=== PATIENT | male | born 1980 | race Caucasian/White ===

== ENCOUNTER → 2020-02-29 15:26 | Outpatient (CLI) | payer BC, SELFPAY ==
--- NOTE | ~2020-02-29 | XR_ITS ---
XR_CERV2-3V_CR DATE: 02/29/2020 15:37 INDICATION: Skin paresthesia TECHNIQUE: AP, open-mouth, lateral, swimmer views COMPARISON: None FINDINGS: There is normal alignment at C1 and C2. The odontoid process is intact. No fracture or dislocation or locked facet. No prevertebral soft tissue swelling. Cervical interspaces are preserved. IMPRESSION: No significant abnormality Reviewed, dictated and finalized at Location A. Reviewed, dictated and finalized at location B. IMPRESSION: No significant abnormality
== END ==
PROVIDERS: PCP Physician Assistant; Visit Provider Physician Assistant
DX: R20.2 Paresthesia of skin (principal)
CPT/HCPCS: 72040

== ENCOUNTER 2020-05-04 08:50 | Outpatient (CLI) | payer BC, SELFPAY ==
--- NOTE | 2020-05-04 11:00 | NEURO_ITS ---
Patient Number: [id number] Impression: # Complains of right hand pain and numbness. # Right moderate Carpal Tunnel Syndrome. # No ulnar neuropathy. # Normal needle/EMG exam. Nerve Conduction Studies Anti Sensory Summary Table Stim Site NR Peak (ms) P-T Amp (?V) Site1 Site2 Delta-P (ms) Dist (cm) Efren (m/s) Right Median Anti Sensory (2-3nd Digit) Wrist 4.5 7.7 Wrist 2-3nd Digit 4.5 14.0 31 Wrist 7.4 9.8 Wrist 2-3nd Digit 4.5 14.0 31 Right Radial Anti Sensory (Base 1st Digit) Wrist 2.2 27.5 Wrist Base 1st Digit 2.2 0.0 Right Ulnar Anti Sensory (5th Digit) Wrist 2.5 56.3 Wrist 5th Digit 2.5 14.0 56 Motor Summary Table Stim Site NR Onset (ms) O-P Amp (mV) Site1 Site2 Delta-0 (ms) Dist (cm) Efren (m/s) Right Median Motor (Abd Poll Brev) Wrist 5.2 1.2 Elbow Wrist 5.2 32.0 62 Elbow 10.4 1.2 Right Ulnar Motor (Abd Dig Minimi) Wrist 2.4 8.1 A Elbow Wrist 5.6 32.0 57 A Elbow 8.0 7.0 F Wave Studies NR F-Lat (ms) L-R F-Lat (ms) Right Median (Mrkrs) (Abd Poll Brev) 31.64 Right Ulnar (Mrkrs) (Abd Dig Min) 30.08 EMG Side Muscle Nerve Root Ins Act Fibs Amp Dur Recrt Comment Right 1stDorInt Ulnar C8-T1 Nml Nml Nml Nml Nml Right Ext Indicis Radial (Post Int) C7-8 Nml Nml Nml Nml Nml Right Ext Digitorum Radial (Post Int) C7-8 Nml Nml Nml Nml Nml Right BrachioRad Radial C5-6 Nml Nml Nml Nml Nml Right PronatorTeres Median C6-7 Nml Nml Nml Nml Nml Right Abd Poll Brev Median C8-T1 Nml Nml Nml Nml Nml Right ABD Dig Min Ulnar C8-T1 Nml Nml Nml Nml Nml MTDD
== END 2020-05-04 08:51 | disposition home or self-care (01) ==
PROVIDERS: PCP Physician Assistant; Visit Provider Physician Assistant
DX: G56.01 Carpal tunnel syndrome, right upper limb (principal)
CPT/HCPCS: 95886; 95909

== ENCOUNTER 2020-07-08 00:40 | Outpatient (CLI) | payer BC, SELFPAY ==
[2020-07-08 20:15] LABS: SARS-CoV-2 RNA PCR Negative
== END 2020-07-08 00:41 | disposition home or self-care (01) ==
LOC: ANHCOVIDDT 00:41
PROVIDERS: PCP Family Medicine; Visit Provider Plastic Surgery
DX: Z01.818 Encounter for other preprocedural examination (principal); Z20.828 Contact with and (suspected) exposure to other viral communicable diseases
CPT/HCPCS: 87635; C9803; U0003

== ENCOUNTER 2020-07-12 00:09 | Day surgery (SDC) | payer BC, SELFPAY ==
[2020-07-03 14:05] VITALS: BMI 33.0
--- NOTE | 2020-07-12 08:29 | WPDHPUPDATE1 ---
History and Physical Update Update Date/Time: 07/12/20 08:29 History and Physical has been reviewed, including an updated exam of the patient. There are NO changes in the patient's condition. Risks, benefits, and alternatives have been discussed and questions answered. Patient agrees to proceed with procedure.
--- NOTE | 2020-07-12 13:01 | PM.OP ---
Procedure Note - Brief Procedure Note - Brief Date of procedure: 07/12/20 Pre-op diagnosis: right carpal tunnel syndrome Post-op diagnosis: same Procedure performed: R OCTR Anesthesia: local Surgeon: Octavio Wallace MD Estimated blood loss (mL): 0 Drains: No Packing: No Pathology: none sent Complications: No immediate complications Condition: stable Disposition: same day
[2020-07-12 14:58] VITALS: BP 144/94; PULSE 93; RESP 16; TEMP 36.8; O2SAT 98
[2020-07-12 15:31] VITALS: BP 158/70; PULSE 88; RESP 16; O2SAT 96
[2020-07-12 15:40] VITALS: BP 155/68; PULSE 89; RESP 18; O2SAT 98
[2020-07-12 15:50] VITALS: BP 139/73; PULSE 74; RESP 18; O2SAT 97
[2020-07-12 16:02] VITALS: BP 135/74; PULSE 82; RESP 16; O2SAT 99
--- NOTE | 2020-07-12 16:49 | PM.PROC ---
Procedure Note - Detailed Date of procedure: 07/12/20 Pre-op diagnosis: right carpal tunnel syndrome Post-op diagnosis: same Procedure performed: Right open carpal tunnel release Description of procedure: The right palmar site was marked on the patient in the holding area. He was rolled to the operating room and placed supine on the operating table. This procedures under local anesthetic. A time-out was held and confirmed. The extremity was prepped and draped in usual fashion. The site was again marked. The site was locally infiltrated with 1% lidocaine with epinephrine. The patient found is fairly disconcerting wish proceed. Time was allowed for anesthetic and hemostatic effect. No tourniquet was used. The incision was made as marked. The dissection was carried bluntly through the subcutaneous tissue to the palmar fascia. This and the carpal ligament were incised with a 15. Blade. Additional anesthetic had to be placed at that time. The patient then tolerated the remainder the procedure well as we divided the carpal ligament completely. The ligament was thick, but there was no unusual anatomy noted. The wound was closed with interrupted 4-0 nylon. No tourniquet was used and no cautery was used there was very minimal bleeding. The usual bandage was applied. He was discharged from the operating room stable condition.He has a prescription for hydrocodone 5/325 sent to his pharmacy Surgeon: Octavio Wallace MD
== END 2020-07-12 16:30 | disposition home or self-care (01) ==
PROVIDERS: PCP Family Medicine; Visit Provider Plastic Surgery
PROC: (CPT 64721; principal; 2020-07-12 15:00)
DX: G56.01 Carpal tunnel syndrome, right upper limb (principal)
CPT/HCPCS: 64721; A9270

== ENCOUNTER → 2020-08-17 12:11 | Outpatient (CLI) | payer BC, SELFPAY ==
--- NOTE | ~2020-08-17 | US_ITS ---
EXAMINATION: US scrotum doppler EXAM DATE: 08/17/2020 12:41 INDICATION: N50.812 - Left testicular pain. TECHNIQUE: Multiple grayscale and Doppler images of the testicles and scrotum were obtained bilateral ly. There is no prior study for comparison. FINDINGS: Right testicle measures 4.0 x 2.5 x 2.9 cm and is morphologically normal. Low resistance Doppler zhou w confirmed. The epididymis is unremarkable. There is no hydrocele or varicocele. Left testicle measures 3.9 x 2.6 x 2.4 cm and is morphologically normal. Low resistance Doppler flow confirmed. The epididymis is unremarkable. There is no hydrocele or varicocele. IMPRESSION: Unremarkable testicular/scrotal ultrasound exam. Reviewed, dictated and finalized at location A. K REPAIR LABORER
== END ==
PROVIDERS: PCP Family Medicine; Visit Provider Family Medicine
DX: N50.812 Left testicular pain (principal)
CPT/HCPCS: 76870; 93976

== ENCOUNTER → 2020-12-08 04:37 | Outpatient (CLI) | payer BC, SELFPAY ==
[2020-12-08 19:37] LABS: SARS-CoV-2 RNA PCR Negative
== END ==
PROVIDERS: PCP Family Medicine; Visit Provider Physician Assistant
DX: Z20.822 Contact with and (suspected) exposure to COVID-19 (principal); R05 Cough
CPT/HCPCS: C9803; U0003; U0005

== ENCOUNTER → 2021-01-09 10:38 | Outpatient (CLI) | payer BC, SELFPAY ==
--- NOTE | ~2021-01-09 | XR_ITS ---
XR lumbar spine min 4V DATE: 01/09/2021 12:03 INDICATION: Low back pain TECHNIQUE: AP, lateral, coned lateral lumbosacral and bilateral oblique views COMPARISON: None FINDINGS: There is minimal degenerative spurring of the lumbar spine, most pronounced at the upper ma rgin of the fourth lumbar vertebral body. Lumbar and lumbosacral interspaces are relatively well pres erved. No fracture, bone destruction, spondylolysis or spondylolisthesis is detected. The sacroiliac joints are normal. IMPRESSION: Mild degenerative change Reviewed, dictated and finalized at location A. IMPRESSION: Mild degenerative change
== END ==
PROVIDERS: PCP Family Medicine; Visit Provider Physician Assistant
DX: M47.816 Spondylosis without myelopathy or radiculopathy, lumbar region (principal)
CPT/HCPCS: 72110

== ENCOUNTER → 2021-07-18 02:49 | Outpatient (CLI) | payer BC, SELFPAY ==
[2021-07-18 19:39] LABS: SARS-CoV-2 RNA PCR Positive
== END ==
PROVIDERS: PCP Family Medicine; Visit Provider Family Medicine
DX: U07.1 COVID-19 (principal); R05.9 Cough, unspecified
CPT/HCPCS: C9803; U0003; U0005

== ENCOUNTER → 2021-12-06 11:44 | Outpatient (CLI) | payer BC, SELFPAY ==
--- NOTE | ~2021-12-06 | US_ITS ---
US scrotum doppler INDICATION: Left testicular pain. TECHNIQUE: Testicular sonogram utilizing grayscale and color Doppler FINDINGS: The testes are normal in size and appearance. No focal lesions are seen. The right testes measures 4.5 x 2.4 x 3.2 cm centimeters, and the left testis measures 4.3 x 2.4 x 2.9 cm cm. There is normal vascular flow to both testes. The right and left epididymides appear normal. There are small hydroceles. No evidence for varicocele. IMPRESSION: 1. Small bilateral hydroceles. Reviewed, dictated and finalized at location A.
== END ==
PROVIDERS: PCP Family Medicine; Visit Provider Family Medicine
DX: N50.812 Left testicular pain (principal); N43.3 Hydrocele, unspecified
CPT/HCPCS: 76870; 93976

== ENCOUNTER 2023-12-05 01:35 | Day surgery (SDC) | payer BC, SELFPAY ==
[2023-11-18 15:03] VITALS: BMI 33.0
[2023-12-05 10:04] VITALS: BP 142/95; PULSE 77; RESP 16; TEMP 36; O2SAT 99
[2023-12-05 10:07] LABS: Glucose Point of Care 121 mg/dl (65-105)
[2023-12-05] MEDS: LACTATED RINGERS 1,000 ML 150 ML IV CONT (10:12)
--- NOTE | 2023-12-05 10:48 | WPDANESEPPF ---
Anes - Initial Pre Proc Eval Procedure: Operation Date: 12/05/23 11:30 Proposed Procedures p Screening Colonoscopy - Mert Almaraz MD Date/Time: 12/05/23 10:48 Surgeon: Mert Almaraz MD Pre Op Diagnosis: neoplasm screening Patient Data Age: 43 Gender: M Height: 1.78 m Weight: 99 kg Last Vital Signs Temp 96.8 F L 12/05/23 10:04 Pulse 77 12/05/23 10:04 Resp 16 12/05/23 10:04 BP 142/95 H 12/05/23 10:04 Pulse Ox 99 12/05/23 10:04 O2 Del Method Room Air 12/05/23 10:04 Allergies Allergy/AdvReac Type Severity Reaction Status Date / Time No Known Allergies Allergy Verified 12/05/23 10:03 Home Medications Medication Instructions Recorded Confirmed Type cetirizine 10 mg tablet (Zyrtec) 10 mg PO DAILY 06/14/19 12/05/23 History fluticasone propionate 50 2 spray intranasal DAILY 06/14/19 11/18/23 History mcg/actuation nasal spray,suspension nebulizers #1 ea 09/06/19 09/18/23 Rx albuterol sulfate 2.5 mg/3 mL 2.5 mg (3 mL) inhalation Q6H PRN 04/25/22 11/18/23 Rx (0.083 %) solution for nebulization bronchospasm #180 mL albuterol sulfate 90 mcg/actuation 2 puff inhalation Q4H PRN 07/19/22 11/18/23 Rx aerosol inhaler shortness of breath or wheezing #8.5 grams dextroamphetamine-amphetamine 15 15 mg PO DAILY 05/15/23 12/05/23 History mg tablet (Adderall) omeprazole 20 mg capsule,delayed 20 mg PO HS #90 caps 05/15/23 11/18/23 Rx release sertraline 50 mg tablet 100 mg PO DAILY 05/15/23 11/18/23 History atorvastatin 20 mg tablet 20 mg PO QHS #90 tabs 06/30/23 11/18/23 Rx metformin 500 mg tablet,extended 500 mg PO BID #180 tabs 11/24/23 12/05/23 Rx release 24 hr Laboratory Tests 12/05/23 10:04 POC Capillary Glucose 121 H mg/dl (65-105) Patient hx anesthesia problems: none Family hx anesthesia problems: none Results Review: All pre-operative results and documents have been reviewed as part of the pre-operative evaluation. [facility] Past Medical History Medical History ADHD Asthma JAME (obstructive sleep apnea) Surgical History Surgical History History of nasal septoplasty History of vasectomy (~04/2018) Family History Family History Mother Family history of elevated blood lipids Acute myocardial infarction, Onset Age: 58 Family history of coronary artery disease Sibling Family history of elevated blood lipids Grandparent Acute myocardial infarction Family history of coronary artery disease Social History Social History Years smoked: 4 Smoking status: Former smoker Tobacco type: cigarettes Smoking end date: 07/03/00 Alcohol intake: current Drinks per week: 4 Alcohol use details: weekends Substance use: never Substance use type: does not use Do You Feel Safe in your Home?: Yes Lack of Transportation: No Lack of Food: Never True Current Housing: I Have Housing Concerned About Future Housing: No Difficulty Paying Gas/Electric Bills: No Difficulty Paying for Meds: No Currently Unemployed: No Education: Trade/Vocational Certificate Difficulty w/ Childcare or Family Care: No Living arrangements: with family Gender identity (if verbalized by the patient): Male Spiritual care concerns: No Agree to blood products: Yes Anes - Eval Final PreProcedure Day of Procedure 12/05/23 10:48 Patient weight: obese Heart: regular rate and rhythm Lungs: clear to auscultation Airway: Mallampati scale class II Neurological: alert and oriented Last oral intake: >/= 8 hours ASA classification: III Emergent: no Anesthetic plan: proceed Anesthesia type and monitoring: general GIVS and standard monitoring Results Review: All pre-operative results and d
--- NOTE | 2023-12-05 11:41 | PM.HPGS ---
History of Present Illness History of Present Illness Consent: Risks, benefits, and alternatives have been discussed and questions answered. Patient agrees to proceed with procedure. Chief complaint: neoplasm screening Narrative: James Hansen is a 43 year old male here for first screening colonoscopy Review of Systems Review of Systems: All systems reviewed & are unremarkable except as noted in HPI and below PMFSH Past Medical History Medical History ADHD Asthma JAME (obstructive sleep apnea) Surgical History Surgical History History of nasal septoplasty History of vasectomy (~04/2018) Family History Family History Mother Family history of elevated blood lipids Acute myocardial infarction, Onset Age: 58 Family history of coronary artery disease Sibling Family history of elevated blood lipids Grandparent Acute myocardial infarction Family history of coronary artery disease Social History Social History Years smoked: 4 Smoking status: Former smoker Tobacco type: cigarettes Smoking end date: 07/03/00 Alcohol intake: current Drinks per week: 4 Alcohol use details: weekends Substance use: never Substance use type: does not use Do You Feel Safe in your Home?: Yes Lack of Transportation: No Lack of Food: Never True Current Housing: I Have Housing Concerned About Future Housing: No Difficulty Paying Gas/Electric Bills: No Difficulty Paying for Meds: No Currently Unemployed: No Education: Trade/Vocational Certificate Difficulty w/ Childcare or Family Care: No Living arrangements: with family Gender identity (if verbalized by the patient): Male Spiritual care concerns: No Agree to blood products: Yes Meds Home Medications and Allergies Home Medications Medication Instructions Recorded Confirmed Type cetirizine 10 mg tablet (Zyrtec) 10 mg PO DAILY 06/14/19 12/05/23 History fluticasone propionate 50 2 spray intranasal DAILY 06/14/19 11/18/23 History mcg/actuation nasal spray,suspension nebulizers #1 ea 09/06/19 09/18/23 Rx albuterol sulfate 2.5 mg/3 mL 2.5 mg (3 mL) inhalation Q6H PRN 04/25/22 11/18/23 Rx (0.083 %) solution for nebulization bronchospasm #180 mL albuterol sulfate 90 mcg/actuation 2 puff inhalation Q4H PRN 07/19/22 11/18/23 Rx aerosol inhaler shortness of breath or wheezing #8.5 grams dextroamphetamine-amphetamine 15 15 mg PO DAILY 05/15/23 12/05/23 History mg tablet (Adderall) omeprazole 20 mg capsule,delayed 20 mg PO HS #90 caps 05/15/23 11/18/23 Rx release sertraline 50 mg tablet 100 mg PO DAILY 05/15/23 11/18/23 History atorvastatin 20 mg tablet 20 mg PO QHS #90 tabs 06/30/23 11/18/23 Rx metformin 500 mg tablet,extended 500 mg PO BID #180 tabs 11/24/23 12/05/23 Rx release 24 hr Allergies Allergy/AdvReac Type Severity Reaction Status Date / Time No Known Allergies Allergy Verified 12/05/23 10:03 Vital Signs Vital Signs - 24 hr 12/05/23 10:04 Temperature 96.8 F L Pulse Rate 77 Respiratory Rate 16 Blood Pressure 142/95 H Pulse Oximetry 99 Oxygen Delivery Room Air Exam Const: General: comfortable and no acute distress HENMT: Face/Nose/Sinus: Normal nares present Eyes: General: appearance normal, both eyes and all related structures Neck: Neck: no JVD Resp: Auscultation: clear to auscultation bilaterally Cardio: Rate: regular rate Rhythm: regular rhythm GI: Inspection: non-distended GI Palp: Yes Soft to palpation Skin: General skin exam: normal color Neuro: General: gait normal Speech: normal speech Extrem: General: normal to inspection Psych: Mental Status: mental status grossly normal Assessment and Plan Assessment and plan (1) Colon canc
[2023-12-05 12:06] VITALS: BP 110/77; PULSE 67; RESP 16; O2SAT 96
[2023-12-05 12:16] VITALS: BP 113/76; PULSE 66; RESP 18; O2SAT 97
[2023-12-05 12:26] VITALS: BP 138/87; PULSE 65; RESP 20; O2SAT 98
== END 2023-12-05 12:29 | disposition home or self-care (01) ==
PROVIDERS: PCP Family Medicine; Referring Provider Nurse Practitioner; Visit Provider Internal Medicine Gastroenterology
PROC: 0DJD8ZZ Inspection of Lower Intestinal Tract, Via Natural or Artificial Opening Endoscopic (ICD-10-PCS; CPT 45378; principal; 2023-12-05 11:30)
DX: Z12.11 Encounter for screening for malignant neoplasm of colon (principal); D12.4 Benign neoplasm of descending colon; D12.5 Benign neoplasm of sigmoid colon; K64.8 Other hemorrhoids; F90.9 Attention-deficit hyperactivity disorder, unspecified type; J45.909 Unspecified asthma, uncomplicated; G47.33 Obstructive sleep apnea (adult) (pediatric); Z79.51 Long term (current) use of inhaled steroids; Z79.84 Long term (current) use of oral hypoglycemic drugs; Z87.891 Personal history of nicotine dependence; E66.9 Obesity, unspecified; Z68.31 Body mass index [BMI] 31.0-31.9, adult
CPT/HCPCS: 45385; 82948; 88305; J2704; J7120

== ENCOUNTER 2024-08-18 14:00 | Outpatient (CLI) | payer BC, SELFPAY ==
--- NOTE | ~2024-08-18 | XR_ITS ---
EXAMINATION: XR thoracolumbar DATE: 08/18/2024 14:13 INDICATION: Dorsalgia TECHNIQUE: AP and lateral views of the thoracolumbar spine were obtained. COMPARISON: Lumbar spine radiographs dated 01/09/2021 FINDINGS: 8 degree upper lumbar dextrocurvature. Sagittal alignment is normal. Vertebral body and disc heights are normal. There are small endplate osteophytes at a few levels in the lumbar spine. Visualized port ion of the lower lungs are clear with no pleural effusion. Heart size is normal.. IMPRESSION: 1. 8 degrees upper lumbar dextrocurvature. Reviewed, dictated and finalized at location A. GHT FLOW SALES LEADER
== END 2024-08-18 14:01 | disposition home or self-care (01) ==
LOC: GOSHIMG 14:01
PROVIDERS: PCP Family Medicine; Visit Provider Nurse Practitioner
DX: M54.9 Dorsalgia, unspecified (principal)
CPT/HCPCS: 72080

== ENCOUNTER 2024-11-15 14:35 | Outpatient (CLI) | payer BC, SELFPAY ==
--- NOTE | ~2024-11-15 | XR_ITS ---
CHEST RADIOGRAPH, PA AND LATERAL CLINICAL HISTORY: R05.9 - Cough, unspecified . COMPARISON: None available TECHNIQUE: PA and lateral views of the chest. FINDINGS The cardiomediastinal silhouette is unremarkable. The lungs are clear. Visualized osseous structures and soft tissues are unremarkable. IMPRESSION: No focal infiltrate or effusion. Reviewed, dictated and finalized at location A.
== END 2024-11-15 14:36 | disposition home or self-care (01) ==
LOC: GOSHIMG 14:36
PROVIDERS: PCP Nurse Practitioner; Visit Provider Family Medicine
DX: R05.9 Cough, unspecified (principal)
CPT/HCPCS: 71046

== ENCOUNTER 2025-07-06 09:54 | Outpatient (CLI) | payer BC, SELFPAY ==
--- NOTE | 2025-07-06 10:00 | NEURO_ITS ---
Impression: # Non-diabetic complains of left hand numbness. # Left Carpal Tunnel Syndrome. # No Ulnar Neuropathy. # Normal Needle/ EMG exam. Nerve Conduction Studies ?Stim Site NR Peak (ms) P-T Amp (?V) Site1 Site2 Delta-P (ms) Dist (cm) Efren (m/s) Left Median Anti Sensory (2-3nd Digit) Wrist ? 3.5 18.0 Wrist 2-3nd Digit 3.5 14.0 40 Wrist ? 3.9 44.5 Wrist 2-3nd Digit 3.5 14.0 40 Left Radial Anti Sensory (Base 1st Digit) Wrist ? 2.0 14.8 Wrist Base 1st Digit 2.0 0.0 Left Ulnar Anti Sensory (5th Digit) Wrist ? 2.4 29.9 Wrist 5th Digit 2.4 14.0 58 ?Stim Site NR Onset (ms) O-P Amp (mV) Site1 Site2 Delta-0 (ms) Dist (cm) Efren (m/s) Left Median Motor (Abd Poll Brev) Wrist ? 4.2 3.2 Elbow Wrist 5.3 32.0 60 Elbow ? 9.5 3.8 Left Ulnar Motor (Abd Dig Minimi) Wrist ? 2.7 7.9 A Elbow Wrist 5.3 32.0 60 A Elbow ? 8.0 7.6 B Elbow Wrist 3.9 23.0 59 B Elbow ? 6.6 7.9 F Wave Studies ?NR F-Lat (ms) L-R F-Lat (ms) Left Median (Mrkrs) (Abd Poll Brev) ? 29.45 Left Ulnar (Mrkrs) (Abd Dig Min) ? 28.56 Electromyography ?Side Muscle Nerve Root Ins Act Fibs Amp Dur Recrt Comment Left 1stDorInt Ulnar C8-T1 Nml Nml Nml Nml Nml Left Ext Indicis Radial (Post Int) C7-8 Nml Nml Nml Nml Nml Left Ext Digitorum Radial (Post Int) C7-8 Nml Nml Nml Nml Nml Left BrachioRad Radial C5-6 Nml Nml Nml Nml Nml Left PronatorTeres Median C6-7 Nml Nml Nml Nml Nml Left Abd Poll Brev Median C8-T1 Nml Nml Nml Nml Nml Left ABD Dig Min Ulnar C8-T1 Nml Nml Nml Nml Nml Left FlexPolLong Median (Ant Int) C7-8 Nml Nml Nml Nml Nml Left Abd Poll Long Radial (Post Int) C7-8 Nml Nml Nml Nml Nml
== END 2025-07-06 09:55 | disposition home or self-care (01) ==
LOC: ANHNEURO 09:58
PROVIDERS: PCP Family Medicine; Visit Provider Plastic Surgery
DX: G56.02 Carpal tunnel syndrome, left upper limb (principal); G56.22 Lesion of ulnar nerve, left upper limb
CPT/HCPCS: 95886; 95909

== ENCOUNTER 2025-07-13 03:51 | Day surgery (SDC) | payer BC, SELFPAY ==
[2025-07-12 11:16] VITALS: BMI 29.7
--- NOTE | 2025-07-12 11:25 | PC.NURSE ---
[facility] has started construction of its new state of the art ER which will open Spring 2026. With this, we anticipate parking may be a challenge for some our surgical patients and families. Parking spaces are limited but are available for all Surgical, obstetrics, and ER patients sharing this lot. If you arrive and find you are having a hard time finding a parking space, please note that we understand the challenges, please drive around the hospital and park near Hospital Entrance 1. When you enter this entrance, you can ask a volunteer to direct or take you back to the surgical waiting area to check in. We appreciate everyone?s understanding of these expected challenges while we build for your future. Report to the Outpatient Waiting Room, entrance under the green pavilion located off [address], at time __1:30pm on date __07/13/25 . Planned Procedure Time: ___3:30pm .? Time changes happen often and if your time is changed the preop area will call you the afternoon before. - You and your visitor will be asked to self-screen and do not enter if you have any COVID symptoms. Please call surgeon if you need to reschedule. - A mask is optional within the hospital at this time. Patients may have NO FOOD after midnight, Pt can have clear liquids (water, carbonated beverages, clear teas, apple juice) until 8 hours prior to surgery (0700am), Then just sip of water with any meds if needed until Surgery time. - No smoking, or chewing tobacco (or any form of nicotine). No chewing gum, candy or mints. Take only the following medications with a SIP of water on the morning of surgery: Inhalers DO NOT STOP ANY OF YOUR OTHER PRESCRIPTION MEDICATIONS PRIOR TO SURGERY EXCEPT THE FOLLOWING Hold all vitamins and supplements for 3 days per anesthesiologist. Medications to discontinue per physician NONE Date to take last dose NONE Please no make-up, nail new zealander, hairspray, perfume, deodorant, or body powder the day of surgery.? No jewelry (including any body piercings) or valuables the day of surgery, leave them at home.? Please take a shower or bath the night before, or the morning of, surgery with an antibacterial soap.? Wear comfortable, loose fitting clothing. - Jewelry must be removed prior to entering the operating room.? Rings and piercings that are not removed may be cut off. - The hospital will not accept responsibility for valuables.? - Please leave all valuables, including medications, at home the day of surgery. If you are going home after surgery, a licensed driver utility worker must drive you home.? - NO public transportation without another adult if you receive anesthesia. - We recommend that an adult stay with you for 24 hours following discharge. - We also recommend that you do not drive, make important decision, drink alcoholic beverages, or take any drugs that were not prescribed by your health care provider for at least 24 hours after your discharge time. Follow any additional instructions given to you from your surgeon. Telephone instructions given to _Patient and asked if any additional questions and then verbalized understanding. Patient advised to call surgeon office or pre surgery nurse liaison [phone] if any additional questions.
--- OUTSIDE RECORDS SUMMARY | 2025-07-13 03:53 | XMS_ITS | Clinical Summary ---
Author Organization [facility] lin Address [address] [place] [address] Care Team Providers Care Yard Warehouse Worker Name Role Phone No, Pcp SUPPORT ENGINEER Primary Care Provider Unavailabl e Social History Tobacco Use Types Packs/Day Years Used Date Smoking Tobacco: Never Assessed Sex and Gender Information Value Date Recorded Sex Assigned at Not on file Legal Sex Male 3:43 PM EDT Gender Identity Not on file Sexual Orientation Not on file Plan of Treatment Not on file Medical Devices Not on file Insurance [facility] Care Teams Yard Warehouse Worker Relationship Specialty Start Date End Date No, Pcp, SUPPORT ENGINEER N/A Do not use PCP - General Family Medicine 12/07/20
--- OUTSIDE RECORDS SUMMARY | 2025-07-13 03:53 | XMS_ITS | Clinical Summary ---
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 Gender Identity Not on file Sexual Orientation Not on file Plan of Treatment Health Maintenance Due Date Last Done Comments Colorectal Cancer Screening Colonoscopy (10 Years) 1978 Annual Physical 1981 Hepatitis C 1996 DTaP, Tdap and Td Vaccines ( 1 - Tdap) 1997 Hepatitis B Vaccines (1 of 3 - 19+ 3-dose series) 1997 COVID-19 Vaccine ( - 2024-2 6 season) 2025 Influenza Adult (#1) 2025 Hepatitis A Vaccines Aged Out No long er eligible based on patient's age to complete this topic Meningococcal B Vaccine Aged Out No l onger eligible based on patient's age to complete this topic Meningococcal Vaccine Aged Out No heydi ciera eligible based on patient's age to complete this topic Pneumococcal Vaccine: Pediat rics (0 to 5 Years) and At-Risk Patients (6 to 49 Years) Aged Out No longer eligible b ased on patient's age to complete this topic RSV Immunizations Under 20 Months Aged Out No longer eligible based on patient's age to complete this topic
--- OUTSIDE RECORDS SUMMARY | 2025-07-13 03:53 | XMS_ITS | Patient Health Record ---
Author Organization [facility] Address [address] [facility] [address] [place] [address] Care Team Providers Care Industrial Automation Specialist Name Role Phone Chaparro Berg Unavailable [phone] Allergies No Known Allergies Results Component Value Reference Range Notes UDT Reviewed date:02/01/2025 05:13:28 PM Interpretation: Performing Lab: Notes/Report: Amphetamine (AMP) N 0 - 1000 ng/ml Buprenorphine (BUP) N 0 - 10 ng/ml Oxazepam (BZO) N 0 - 300 ng/ml Cocaine (MODESTO) N 0 - 300 ng/ml Methamphetamine (mAMP) N 0 - 300 ng/ml Methylenedioxymethamphetamine (MDMA) N 0 - 500 ng/ml Morphine (MOP) N 0 - 25 ng/ml Methadone (MTD) N 0 - 300 ng/ml Oxycodone (OXY) N 0 - 300 ng/ml THC N 0 - 50 ng/ml x N 0 - 1000 ng/ml x N 0 - 1000 ng/ml x N 0 - 300 ng/ml x N 0 - 300 ng/ml x N 0 - 300 ng/ml UDT Reviewed date:10/06/2024 04:59:39 PM Interpretation: Performing Lab: Notes/Report: Amphetamine (AMP) POS 0 - 1000 ng/ml Buprenorphine (BUP) NEG 0 - 10 ng/ml Oxazepam (BZO) NEG 0 - 300 ng/ml Cocaine (MODESTO) NEG 0 - 300 ng/ml Methamphetamine (mAMP) NEG 0 - 300 ng/ml Methylenedioxymethamphetamine (MDMA) NEG 0 - 500 ng/ml Morphine (MOP) NEG 0 - 25 ng/ml Methadone (MTD) NEG 0 - 300 ng/ml Oxycodone (OXY) NEG 0 - 300 ng/ml THC NEG 0 - 50 ng/ml x NEG 0 - 1000 ng/ml x NEG 0 - 1000 ng/ml x NEG 0 - 300 ng/ml x NEG 0 - 300 ng/ml x NEG 0 - 300 ng/ml Reason For Referral No Information Medications Medication SIG (Take, Route, Frequency, Duration) Notes Start Date End Date Status Amphetamine-Dextroamp het ER 15 MG Capsule Extended Release 24 Hour 1 capsule in the morning Orally Once a day; Duration: 30 days 06/29/2025 Active Losartan Potassium 25 MG Tablet TAKE 1 TABLET BY MOUTH EVERY DAY Oral; Duration: 90 Days Active traZODone HCl 50 MG Tablet take 0.5 to 1 tablet at bedtime Orally Once a day; Duration: 90 days As needed 06/29/2025 Active metFORMIN HCl ER 500 MG Tablet Extended Release 24 Hour Oral 12/09/2023 Active Atorvastatin Calcium 20 MG Tablet Oral 12/09/2023 Active Omeprazole 20 MG Capsule Delayed Release Oral 12/09/2023 Active Sertraline HCl 100 MG Tablet 1.5 tablet Oral Once a day; Duration: 90 days 06/29/2025 Active ZyrTEC *Reorder from [employer] for eRx and Interaction Alerts* 12/09/2023 Active ALBUTEROL 90 MCG-BUDESONIDE 80 MCG/ACTUATION HFA AEROSOL INHALER *Reorder from [employer] for eRx and Interaction Alerts* 12/09/2023 Active Social History Tobacco Use: Social History Observation Description Date Details (start date - stop date) Never Smoker NA - NA Sex Assigned At : Social History Observation Description Sex Assigned At Male Social History Miscellaneous: Social Info Question Answer Notes Advance Care Planning Are you your own decision-maker Yes Do you have Power of Posting Specialist for Health or Medi zachary? Yes Do you have a power of workers compensation attorney for health? Yes Do you have power of workers compensation attorney for Medical ? Yes Drug/Alcohol: Social Info Question Answer Notes AUDIT-C (Standard) Did you have a drink containing alcohol in the past year? Yes How often did you have six or more drinks on one occasion in the past year? 2 to 4 times a month (2 points) How many drinks did you have on a typical day when you were drinking in the past year? 5 or 6 drinks (2 points) Tobacco Use: Social Info Question Answer Notes Tobacco Control (Standard) Tobacco use: Nonsmoker How long has it been since you last smoked? Greater than 10 years Additional Details Category Social Info Options Details Migrated Social History Migrated Social History Alcohol Intake: Occasional 12/25/2022,Tobacco Years: Former smoker 12/25/2022 Problems Problem Type SNOMED Code ICD Code Onset Dates Problem Status W/U Status Risk Notes Problem Generalized anxiety disorder (49805718) Generalized anxiety disorder (F41.1) 12/09/19 24 Active confirmed Problem Insomnia disorder related to another mental disorder (89109554) Insomnia due to other mental disorder (F51.05) 12/09/19 24 Active confirmed Problem Attention deficit hyperactivity disorder, combined type (31536526) Attention-deficit hyperactivity disorder, combined type (F90.2) 12/09/19 24 Active confirmed Vital Signs Heart Rate 83 /min 06/29/2025 Height-cm 177.8 cm 06/29/2025 Blood pressure diastolic 88 mm Hg 06/29/2025 Weight-kg 98.88 kg 06/29/2025 Height 70.00 in 06/29/2025 Blood pressure systolic 133 mm Hg 06/29/2025 Weight 218 lbs 06/29/2025 BMI 31.28 kg/m2 06/29/2025 Encounters Encounter Location Date Provider Diagnosis [facility] [facility] [place] [address] 10/05/2024 Chaparro Greera Encounter for screen ing for depression Z13.31 ; Encounter for screening for cardiovascular disorders Z13.6 ; Dietary counseling and surveillance Z71.3 ; Insomnia due to other mental disorder F51.05 ; Generalized anxiety disorder F41.1 and Attention-deficit hyperactivity disorder, combined type F90.2 [employer] [address] [place] [address] 02/01/2025 Chaparro Berg Insomnia due to othe r mental disorder F51.05 ; Generalized anxiety disorder F41.1 and Attention-deficit hyperactivity disorder, combined type F90.2 [facility] [employer] [facility] [address] [place] [address] 05/30/2025 Chaparro Berg Insomnia due to othe r mental disorder F51.05 ; Generalized anxiety disorder F41.1 and Attention-deficit hyperactivity disorder, combined type F90.2 [facility], [facility] [address] [place] [address] 06/29/2025 Chaparro Berg Insomnia due to othe r mental disorder F51.05 ; Generalized anxiety disorder F41.1 and Attention-deficit hyperactivity disorder, combined type F90.2 [facility], [facility] [address] [place] [address] 08/20/2024 Chaparro Berg Attention-deficit hyperactivity disorder, combined type F90.2 [facility], [facility] [address] [place] [address] 08/20/2024 Chaparro Berg [facility], [facility] [address] [place] [address] 09/23/2024 Chapraro Berg Attention-deficit hyperactivity disorder, combined type F90.2 and Insomnia due to other mental disorder F51.05 [facility] [address] [place] [address] 10/26/2024 Chaparro Berg Attention-deficit hyperactivity disorder, combined type F90.2 [facility] [address] [place] [address] 11/30/2024 Chaparro Berg Attention-deficit hyperactivity disorder, combined type F90.2 [facility], [facility] [address] [place] [address] 12/28/2024 Chaparro Berg Attention-deficit hyperactivity disorder, combined type F90.2 [facility], [facility] [address] [place] [address] 03/02/2025 Chaparro Berg Attention-deficit hyperactivity disorder, combined type F90.2 [facility], [facility] [address] [place] [address] 03/31/2025 Chaparro Berg Attention-deficit hyperactivity disorder, combined type F90.2 [facility], [facility] [address] [place] [address] 03/31/2025 Chaparro Berg [facility], [facility] [address] [place] [address] 05/03/2025 Chaparro Berg Attention-deficit hyperactivity disorder, combined type F90.2 Assessments Encounter Date Diagnosis (ICD Code) Assessment Notes Treatment Notes Treatment Clinical Notes Section Notes 10/05/2024 Encounter for screening for depression (ICD-10 - Z13.31) 09/23/2024 Attention-deficit hyperactivity disorder, combined type (ICD-10 - F90.2) 08/20/2024 Attention-deficit hyperactivity disorder, combined type (ICD-10 - F90.2) 06/29/2025 Insomnia due to other mental disorder (ICD-10 - F51.05) 05/30/2025 Insomnia due to other mental disorder (ICD-10 - F51.05) 05/03/2025 Attention-deficit hyperactivity disorder, combined type (ICD-10 - F90.2) 03/31/2025 Attention-deficit hyperactivity disorder, combined type (ICD-10 - F90.2) 03/02/2025 Attention-deficit hyperactivity disorder, combined type (ICD-10 - F90.2) 12/28/2024 Attention-deficit hyperactivity disorder, combined type (ICD-10 - F90.2) 11/30/2024 Attention-deficit hyperactivity disorder, combined type (ICD-10 - F90.2) 10/26/2024 Attention-deficit hyperactivity disorder, combined type (ICD-10 - F90.2) 02/01/2025 Insomnia due to other mental disorder (ICD-10 - F51.05) 02/01/2025 Generalized anxiety disorder (ICD-10 - F41.1) cont sertraline 100mg daily 06/29/2025 Generalized anxiety disorder (ICD-10 - F41.1) 09/23/2024 Insomnia due to other mental disorder (ICD-10 - F51.05) 10/05/2024 Encounter for screening for cardiovascular disorders (ICD-10 - Z13.6) 05/30/2025 Generalized anxiety disorder (ICD-10 - F41.1) cont sertraline 100mg daily 10/05/2024 Dietary counseling and surveillance (ICD-10 - Z71.3) 05/30/2025 Attention-deficit hyperactivity disorder, combined type (ICD-10 - F90.2) 06/29/2025 Attention-deficit hyperactivity disorder, combined type (ICD-10 - F90.2) 02/01/2025 Attention-deficit hyperactivity disorder, combined type (ICD-10 - F90.2) 10/05/2024 Insomnia due to other mental disorder (ICD-10 - F51.05) 10/05/2024 Generalized anxiety disorder (ICD-10 - F41.1) cont sertraline 100mg daily 10/05/2024 Attention-deficit hyperactivity disorder, combined type (ICD-10 - F90.2) 10/05/2024 Other 1. Anxiety and Depression: - Patient reports no current anxiety or depression symptoms. - States, I think we're at a good spot right now. - Currently maintained on Sertraline 200 mg daily with good effect and no reported side effects. - Recent lifestyle changes include regular exercise (3 days/week) and significant weight loss (40 lbs). - Improved energy levels and overall well-being reported. Plan: - Continue Sertraline 200 mg PO daily - Provide 90-day prescription for Sertraline 2. Attention Deficit Hyperactivity Disorder (ADHD): - Patient reports improved focus and concentration with current medication regimen. - States, I think it's gotten a lot better in reference to his ability to complete work-related tasks. - Currently maintained on Adderall XR 30 mg daily with good effect and no reported side effects. Plan: - Continue Adderall XR 30 mg PO daily - Provide multiple prescriptions for Adderall XR to be filled monthly for the next 4 months (fill dates: 10/21, 11/21, 12/21, 01/21) - Patient to message when refill is due 3. Insomnia: - Patient reports improved sleep with current medication regimen and sleep hygiene practices. - Continues to wake at 2-3 AM but attributes this to long-standing habit rather than sleep disturbance. - Patient reports going to work at 5 AM. - Currently maintained on Trazodone (dose not specified) with good effect. Plan: - Continue Trazodone (dose not specified) at bedtime - Provide 90-day prescription for Trazodone 02/01/2025 Other Anxiety Assessment: Patient reports ongoing anxiety and stress, which he describes as situational. He notes significant improvement in his stress levels following a recent job change, describing the difference as night and day. Despite this improvement, he continues to experience anxiety symptoms. Plan: - Continue Adderall XR 30 mg for ADHD - Continue Sertraline 200 mg daily for anxiety - Continue Trazodone 50 mg, half to one tablet as needed for Insomnia - Refill Adderall prescription at [facility] Sleep Disturbance Assessment: Patient reports persistent sleep issues, attributing them to a routine of early rising that he has difficulty breaking despite his job change. He is currently using Trazodone as needed for sleep. Plan: - Continue Trazodone 50 mg, half to one tablet as needed for sleep the note is transcribed using speech recognition software. It is a reflection of a visit with the patient. It might have some inaccuracy, including medication names and transcribing errors, though efforts have been made to correct them. 05/30/2025 Bayron Hansen presents with several months of worsening restlessness and leg shaking, possibly related to current Adderall dosing. Restlessness and leg shaking Patient reports several months of worsening restlessness characterized by inability to sit still and constant leg shaking throughout the day while at his desk. He has a longstanding history of leg shaking as a nervous habit, but notes this has gotten worse recently. Current medications include Adderall 30 mg and sertraline, with consideration that the combination or excessive Adderall dosing may be contributing to symptoms. Patient also consumes 3-4 cups of coffee daily, reduced from 6-7 cups previously. Symptoms persist despite no recent medication changes, and patient does not report feeling anxious or nervous. Plan: - Decrease Adderall from 30 mg to 15 mg - Continue sertraline - Follow-up in one month to assess response to Adderall reduction Trazodone use Patient currently takes trazodone and expressed willingness to discontinue this medication. Plan: - Patient may discontinue trazodone the note is transcribed using speech recognition software. It is a reflection of a visit with the patient. It might have some inaccuracy, including medication names and transcribing errors, though efforts have been made to correct them. 06/29/2025 Baryon Hansen presents for medication management with concerns about restlessness, leg shaking, and blood pressure changes following recent medication adjustments. Restlessness and leg shaking Assessment: Patient reports persistent restlessness and leg shaking that continues even when missing medications for 1-2 days. Given the persistence of symptoms despite medication breaks, the current serotonin level at 200 mg may be excessive. The combination with Adderall further increases serotonin activity, potentially contributing to these movement-related side effects. Plan: - Decrease serotonin medication to 150 mg for 2 weeks, then reduce to 100 mg - Monitor for improvement in shaking and restlessness symptoms - Consider alternative medication with less serotonergic activity if symptoms persist Blood pressure management Assessment: Blood pressure has improved following reduction from 30 mg to 15 mg of medication. Previous elevation likely related to medication or combination effects. Plan: - Continue monitoring blood pressure with current dosage reduction ADHD symptom control Assessment: ADHD symptoms remain stable despite recent medication reduction, indicating adequate symptom control at current dosing. Plan: - Continue current ADHD medication regimen given stable symptom control Allergy symptoms Assessment: Patient experienced significant worsening of allergy symptoms when attempting to discontinue hydroxyzine for a couple of days, confirming its therapeutic benefit for allergic conditions. Plan: - Continue hydroxyzine for allergy management given symptom exacerbation when discontinued the note is transcribed using speech recognition software. It is a reflection of a visit with the patient. It might have some inaccuracy, including medication names and transcribing errors, though efforts have been made to correct them. Plan Of Treatment Next Appt Details Provider Name:Bailey west, 08/24/2025 04:00:00 PM, [address] [facility] [address], [place], [address], Insurance Providers Payer Name Payer Address Payer Phone Subscriber Number Group Number Insured Name Patient Relationship to Insured Coverage Start Date Coverage End Date [facility] [address] [place] [address] [id number] VAHE HANSEN Spouse - patient is the spouse of the insured Medical (General) History Medical History History ICD Code Problems: Attention deficit hyperactivit y disorder, combined type Generalized anxiety disorder Inattention Insomnia disorder related to another men ashley disorder , Surgical History Surgery Date(Month/Year) Sinus surgery Cosmetic surgery
--- NOTE | 2025-07-13 07:09 | WPDHPUPDATE1 ---
History and Physical Update Update Date/Time: 07/13/25 07:09 Patient seen and examined in pre-operative holding area. No interval change in medical history or symptoms but patient notes he does not wish to proceed with cubital tunnel release today as previously discussed. Patient recalls previous discussion of benefits and alternatives to procedure. Continues to desire to proceed with left endoscopic possible open carpal tunnel release, and left middle and ring finger a1 ankush release. Reviewed procedure, post-op expectations and risks including but not limited to bleeding, infection, injury to tendon/nerve/vessel, decreased hand function, stiffness, RSD, no change or worsening of symptoms. I discussed the possible use of assistants and their participation in the case. Patient stated understanding and signed the consent form wishing to proceed.
--- NOTE | 2025-07-13 07:09 | W.PM.PROC2 ---
Procedure Note - Detailed Date of Procedure 07/13/25 Pre-op Diagnosis left middle and ring trigger finger, left cts Post-op Diagnosis Same Procedure Performed left ectr and MF and RF a1 ankush release Surgeon Jim Perdue MD Store Keeper chloe acuña pa-c Anesthesia MAC Description of Procedure INFORMED CONSENT: The patient was seen and examined and marked in the pre-op area.? The patient signed the consent form. PROCEDURE IN DETAIL:The patient taken back to OR on the stretcher in supine position. Time out performed with anesthesia, surgeon and staff agreeing on patient's name site and surgery to be performed SCDs were placed on the lower extremities and inflated. A tourniquet was placed on {left} upper extremity and antibiotics given IV After anesthesia administered sedation I injected {10}cc 1%lido with epi and 0.5% marcaine plain at the operative sites The?{left upper extremity}?was prepped and draped in sterile fashion the??{left upper extremity} was? exsanguinated with Esmarch bandage and tourniquet inflated to 250mmHg I made a transverse incision in the {left} volar distal wrist crease through skin and dermis with 15 blade scalpel.? Littler scissors spread down to antebrachial fascia. A small incision was made in antebrachial fascia allowing access to Carpal tunnel. I proceeded with sequential dilation staying in line with the ring finger and hugging the hook of the hamate.? I then used the synovial elevator to free any adhesions from the underside of the transverse carpal ligament. Next I was able to insert the [employer] endoscopic carpal tunnel device with direct visualization of the transverse fibers on the monitor and proceeded with complete segmental retrograde release of the ligament in its entirety.? I irrigated with normal saline and closed with 4-0 monocryl for dermis and subcuticular closure. Next I proceeded with making a longitudinal incision over the left middle finger A1 ankush through skin and dermis with a 15 blade scalpel. Littler scissors were used to spread through the subcutaneous tissue down to the A1 ankush. The A1 ankush was identified and initially incised with a 15 blade scalpel. Littler scissors were used to spread above and below it proximally and distally completing the transection entirely. Irrigated with normal saline and closed with 4-0 chromic. Next I proceeded with making a longitudinal incision over the left ring finger A1 ankush through skin and dermis with a 15 blade scalpel. Littler scissors were used to spread through the subcutaneous tissue down to the A1 ankush. The A1 ankush was identified and initially incised with a 15 blade scalpel. Littler scissors were used to spread above and below it proximally and distally completing the transection entirely. Irrigated with normal saline and closed with 4-0 chromic. The incisions were covered with Dermabond at wrist and xeroform in palm then 4x4s, nevin, and a volar wrist splint for patient safety, security and comfort and secured with moises bandages after the tourniquet was let down noting the hand was warm and well perfused.? Patient awaken from anesthesia and transferred to recovery in stable condition Complications - none EBL- 1cc Disposition - home in stable condition Chloe Acuña PA-C was essential for positioning, retraction, closure and dressing placement. [facility] [place] Billing Surgery - Charge Forward: Surgery Billing ([id number] same for chloe adding )
[2025-07-13 13:15] VITALS: BP 150/93; PULSE 64; RESP 14; TEMP 36.2; O2SAT 98
[2025-07-13] MEDS: LACTATED RINGERS 1,000 ML 30 ML IV CONT ×2 (13:40→15:03)
--- NOTE | 2025-07-13 14:00 | WPDANESEPPF ---
Anes - Initial Pre Proc Eval Procedure: Operation Date: 07/13/25 15:30 Proposed Procedures p Left Middle and Ring Trigger Finger A-1 Rashard Release, - Jim Perdue MD s Left Endoscopic Carpal Tunnel Release, Possible Open, Left Cubital Tunnel Release - Jim Perdue MD Date/Time: 07/13/25 14:00 Surgeon: Jim Perdue MD Pre Op Diagnosis: left middle and ring trigger finger, Patient Data Age: 44 Gender: M Height: 1.78 m Weight: 94 kg Allergies Allergy/AdvReac Type Severity Reaction Status Date / Time No Known Allergies Allergy Verified 07/12/25 11:11 Home Medications ?Medication ?Instructions ?Recorded ?Confirmed ?Type cetirizine 10 mg tablet (Zyrtec) 10 mg PO DAILY 06/14/19 07/13/25 History fluticasone propionate 50 2 spray intranasal DAILY 06/14/19 07/13/25 History mcg/actuation nasal spray,suspension nebulizers #1 ea 09/06/19 07/12/25 Rx albuterol sulfate 2.5 mg/3 mL 2.5 mg (3 mL) inhalation Q6H PRN 04/25/22 07/12/25 Rx (0.083 %) solution for nebulization bronchospasm #180 mL omeprazole 20 mg capsule,delayed 20 mg PO HS #90 caps 05/15/23 07/13/25 Rx release sertraline 50 mg tablet 100 mg PO DAILY 05/15/23 07/13/25 History atorvastatin 20 mg tablet 20 mg PO QHS #90 tabs 11/15/24 07/13/25 Rx nebulizer accessories #1 ea 04/01/25 07/12/25 Rx nebulizers #1 ea 04/01/25 07/12/25 Rx albuterol sulfate 90 mcg/actuation See Rx Instructions .Route 05/11/25 07/12/25 Rx aerosol inhaler .COMPLEX #8.5 ea budesonide-formoterol HFA 160 2 puff inhalation .HS #10.2 grams 07/04/25 07/13/25 Rx mcg-4.5 mcg/actuation aerosol inhaler dextroamphetamine-amphetamine ER 15 mg PO DAILY 07/04/25 07/13/25 History 15 mg 24hr capsule,extend release losartan 50 mg tablet 50 mg PO DAILY #90 tabs 07/04/25 07/13/25 Rx tirzepatide (weight loss) 5 mg/0.5 5 mg (0.5 mL) subcut WEEKLY #2 mL 07/11/25 07/13/25 Rx mL subcutaneous pen injector (Zepbound) metformin 500 mg tablet,extended 500 mg PO BID 07/12/25 07/13/25 History release 24 hr Laboratory Tests 07/13/25 13:50 POC Capillary Glucose 87 mg/dl (65-105) Patient hx anesthesia problems: none Family hx anesthesia problems: none Results Review: All pre-operative results and documents have been reviewed as part of the pre-operative evaluation. [facility] Past Medical History Medical History ADHD Asthma JAME (obstructive sleep apnea) Surgical History Surgical History History of nasal septoplasty History of vasectomy (~04/2018) Family History Family History Mother Family history of elevated blood lipids Acute myocardial infarction, Onset Age: 58 Family history of coronary artery disease Sibling Family history of elevated blood lipids Grandparent Acute myocardial infarction Family history of coronary artery disease Social History Social History Years smoked: 4 Smoking status: Former smoker Tobacco type: cigarettes Smoking end date: 07/03/00 Alcohol intake: current Drinks per week: 4 Alcohol use details: weekends Substance use: never Substance use type: does not use Lack of Transportation: No Lack of Food: Never True Current Housing: I Have Housing Concerned About Future Housing: No Difficulty Paying Gas/Electric Bills: No Difficulty Paying for Meds: No Currently Unemployed: No Education: Trade/Vocational Certificate Difficulty w/ Childcare or Family Care: No Living arrangements: with family Gender identity (if verbalized by the patient): Male Spiritual care concerns: No Agree to blood products: Yes Anes - Eval Final PreProcedure Day of Procedure 07/13/25 14:00 Patient weight: overweight Lungs: normal air movement Airway: Mallampati scale class II Neurological: alert and oriented Last oral intake: >/= 8 hours ASA classification: III Emergent: no Anesthetic plan: proceed Anesthesia type and monitoring: general GIVS and standard monitoring Results Review: All pre-operative results and documents have been reviewed as part of the pre-operative evaluation. JAME on CPAP, Asthma stable of recent, anxiety/ADHD, pre DM fsbs 87. Pt active at gym 3 x weekly, no cp or sob. Informed Consent: The patient's anesthetic plan and its attendant risks and benefits were discussed with the patient/family/POA. Questions were solicited and answers provided to the satisfaction of the patient/family/POA.
[2025-07-13] MEDS: ACETAMINOPHEN 500 MG TABLET 1000 MG PO (14:30)
[2025-07-13] MEDS: ceFAZolin 2 GM in SODIUM CHLORIDE 0.9% IV 50 ML 100 ML IVPB (14:34)
[2025-07-13] MEDS: BUPivacaine HCL 0.5% 10 ML AMP INFILTRATE (14:46)
[2025-07-13] MEDS: LIDO 1%/EPINEPHRINE 1:100,000 50 ML VIAL 10 ML INFILTRATE (14:47)
[2025-07-13] MEDS: BACITRACIN OINTMENT 15 GM TUBE 1 APPLIC TOPICAL (14:54)
[2025-07-13 15:03] VITALS: BP 108/62; PULSE 72; RESP 16; O2SAT 94
[2025-07-13 15:30] VITALS: BP 121/73; PULSE 64
[2025-07-13 16:00] VITALS: BP 125/85; PULSE 51
== END 2025-07-13 16:23 | disposition home or self-care (01) ==
PROVIDERS: PCP Family Medicine; Visit Provider Plastic Surgery
PROC: (CPT 26055; principal; 2025-07-13 15:30)
PROC: 01N54ZZ Release Median Nerve, Percutaneous Endoscopic Approach (ICD-10-PCS; CPT 29848; 2025-07-13 15:30)
DX: G56.02 Carpal tunnel syndrome, left upper limb (principal); M65.332 Trigger finger, left middle finger; M65.342 Trigger finger, left ring finger; Z79.85 Long-term (current) use of injectable non-insulin antidiabetic drugs; Z87.891 Personal history of nicotine dependence
CPT/HCPCS: 26055 ×2; 29848; 82948; J0690; A9270; J2003; J2004; J2250; J2704; J3010; J7120